=== PATIENT | female | born 1945 | race Caucasian/White ===

== ENCOUNTER 2018-08-17 11:31 | Outpatient (CLI) | payer MEDICARE | END 2018-08-17 11:32 | disposition home or self-care (01) | LOC: BICMAMMO 11:31 | PROVIDERS: ATTEND Obstetrics & Gynecology | DX: Z12.31 Encounter for screening mammogram for malignant neoplasm of breast (principal) | CPT/HCPCS: 77063; 77067 ==

== ENCOUNTER 2018-09-09 08:51 | Outpatient (CLI) | payer MEDICARE ==
--- NOTE | 2018-09-09 10:04 | BD ---
DEXA BONE MINERAL DENSITY STUDY: HISTORY: Osteoporosis screening, postmenopausal. COMPARISON: DEXA study from 2013. FINDINGS: Lumbar Spine: BMD (g/cm2) L1 0.778 T-Score: -1.9, 0.0 L2 0.705 T-Score: -2.9, 0.8 L3 0.795 T-Score: -2.6, 0.4 L4 0.829 T-Score: -2.1, 0.2 L1-L4 0.780 T-Score: -2.4,-0.3 WHO classification osteopenia. Femoral Neck: 0.640 T-Score: -1.9, 0.0 Total Femur: 0.895 T-Score: -0.4, 1.2 WHO classification osteopenia. TEN-YEAR FRACTURE RISK: Major osteoporotic fracture 11% and hip fracture 2.1%. Impression: Osteopenia with elevated fracture risk as above. POS: [facility]
== END 2018-09-09 08:52 | disposition home or self-care (01) ==
LOC: BICMAMMO 08:51
PROVIDERS: ATTEND Obstetrics & Gynecology
DX: Z13.820 Encounter for screening for osteoporosis (principal); M85.89 Other specified disorders of bone density and structure, multiple sites
CPT/HCPCS: 77080

== ENCOUNTER 2019-05-24 22:53 | Inpatient (IN) | payer MEDICARE ==
[2019-05-24] MEDS ORDERED: Morphine 4 MG/ML VIAL ONE (23:41)
[2019-05-25 04:34] LABS: #Basophils 0.1 thou/uL (0.0-0.2); #Lymphocytes 1.2 thou/uL (1.20-3.40); #Monocytes 0.7 thou/uL (0.11-0.59); #Neutrophils 8.2 thou/uL (1.40-6.50); %Basophils 0.6 % (0.0-1.0); %Eosinophils 0.2 % (0.0-10.0); %Lymphocytes 11.5 % (21.0-51.0); %Monocytes 6.7 % (0.0-10.0); %Neutrophils 81.1 % (42.0-75.0); Hemoglobin 11.3 g/dL (12.0-16.0); Mean Corpuscular HGB CONC 32.3 g/dL (32.0-36.0); Mean Corpuscular Hemoglobin 30.9 pg (27.0-31.0); Mean Corpuscular Volume 95.8 fL (78.0-98.0); Mean Platelet Volume 6.8 fL (7.4-10.4); Platelet Count 193 thou/uL (130-400); RBC Distribution Width 11.3 % (11.5-14.5); Red Blood Cell (RBC) Count 3.64 mill/uL (4.20-5.40); White Blood Cell (WBC) Count 10.2 thou/uL (4.8-10.8)
[2019-05-25 04:38] LABS: PTT 24.2 SEC (22.9-36.1); Prothrombin Time 13.6 SEC (12.0-14.7)
[2019-05-25 04:53] LABS: ALT (SGPT) 29 U/L (8-55); AST (SGOT) 50 U/L (5-34); Albumin 4.3 g/dL (3.4-4.8); Alkaline Phosphatase 41 U/L (40-150); Anion Gap 13 mmol/L (10-20); BUN (Urea Nitrogen) 26 mg/dL (9.8-20.1); Bilirubin, Total 0.6 mg/dL (0.2-1.2); CK (CPK) 147 U/L (29-168); Calc. Creatinine Clearance 0 mL/min (70-130); Calcium 8.9 mg/dL (7.8-10.44); Carbon Dioxide 24 mmol/L (23-31); Chloride 105 mmol/L (98-107); Estimated GFR-MDRD 67; Globulin 2.3 g/dL (2.4-3.5); Glucose 128 mg/dL (83-110); Potassium 4.1 mmol/L (3.5-5.1); Protein, Total 6.6 g/dL (6.0-8.3); Sodium 138 mmol/L (136-145)
[2019-05-25] MEDS ORDERED: Morphine 4 MG/ML VIAL SLOW IVP PRN (05:07)
[2019-05-25] MEDS ORDERED: Ondansetron PF 4 MG/2 ML Vial IVP PRN (05:07)
[2019-05-25] MEDS ORDERED: Dextrose 50% Abboject 50 ML SYRINGE SLOW IVP PRN (05:07)
[2019-05-25] MEDS ORDERED: hydrALAZINE 20 MG/ML VIAL SLOW IVP PRN (05:07)
[2019-05-25] MEDS ORDERED: Dextrose 5% in Water 1,000 ML IV PRN (05:07)
[2019-05-25] MEDS ORDERED: Promethazine HCl 25 MG/ML VIAL IM PRN ×2 (05:07→18:02)
[2019-05-25] MEDS ORDERED: Cyclobenzaprine 10 MG TAB PO PRN (05:10)
[2019-05-25] MEDS ORDERED: traMADol HCl 50 MG TAB PO PRN (05:10)
--- NOTE | 2019-05-25 05:49 | HP ---
TRAUMA SURGEON: Mikel Hong MD CONSULTING PHYSICIAN: Alin Rooney MD HISTORY OF PRESENT ILLNESS: The patient is a 73-year-old female, who presented to the Emergency Department via EMS after a mechanical fall 4 feet off a ladder. The patient reports that she was trying to install a cabinet door when she lost her footing on the stepladder and subsequently fell to the ground. She denies striking her head or loss of consciousness or anticoagulation use. She was able to crawl to the house phone and call for help. Upon my evaluation, she complained of right-sided groin and pelvic tenderness. She denied loss of bladder and bowel function or saddle paresthesias. REVIEW OF SYSTEMS: All additional 10-point review of systems negative except as indicated above. PAST MEDICAL HISTORY: Diverticulosis, osteoporosis, hyperlipidemia and diverticulitis. PAST SURGICAL HISTORY: Cholecystectomy and right lumpectomy. SOCIAL HISTORY: The patient drinks 1 glass of wine most days a week. No tobacco or drug use. MEDICATIONS: 1. Klonopin. 2. Lexapro. ALLERGIES: 1. BIAXIN, CODEINE, LEVOFLOXACIN, MOXIFLOXACIN, PENICILLIN, SULFA DRUGS. PHYSICAL EXAMINATION: VITAL SIGNS: Temperature 98.1, pulse 69, respirations 17, oxygen saturation 98% on room air, blood pressure 106/64. PRIMARY SURVEY: Airway intact. Adequate breath sounds bilaterally. 2+ pulses in the bilateral radials, femorals, and DPs. GCS 15. Gross motor and sensation are intact. No lacerations, bruising, or external bleeding. SECONDARY SURVEY: HEAD: Normocephalic and atraumatic. No gross palpable skull deformities. EYES: Pupils 3 to 2, equal, round, reactive to light bilaterally. ENT: No hemotympanum. No epistaxis. No septal hematoma. Midface stable to manipulation. No blood in the oropharynx. Dentition is intact. No anterior neck crepitus/tenderness/injury. C-SPINE: No step-offs or deformities, nontender. C-collar not in place. CHEST: Nontender. No crepitus. No abrasions or ecchymosis. Equal chest movement. ABDOMEN: Soft, nontender, nondistended. PELVIS: Stable to palpation. Right-sided tenderness. No abrasions or ecchymosis. RECTAL: Deferred. GENITOURINARY: Deferred. EXTREMITIES: No gross deformities. No abrasions or ecchymosis. 2+ pulses in bilateral radials, femorals, and DPs. BACK/SPINE: No step-offs or deformities or tenderness to palpation of the thoracic or lumbar spine. NEUROLOGIC: 5/5 strength in the bilateral lead recreation assistant, plantar flexion, and dorsiflexion. Gross normal sensation x4 extremities. LABORATORY FINDINGS: White count 10.2, hemoglobin 11.3, hematocrit 34.9, platelets 143. INR 1.0. Sodium 134, potassium 4.1, chloride 105, carbon dioxide 24, BUN 26, creatinine 0.84, glucose 128, CK 147, troponin less than 0.010. DIAGNOSTIC FINDINGS: CT of the abdomen and pelvis demonstrates multiple displaced comminuted fracture of the right superior, inferior and ischial pubic rami and right iliac bone fracture, right sacral wing fracture as well as a pelvic hematoma. Reads of the hip x-ray, shoulder x-ray and chest x-ray are still pending. ASSESSMENT: 1. Status post mechanical fall 4 feet with no loss of consciousness. 2. Multiple displaced comminuted fractures of the right superior, inferior and ischial pubic rami. 3. Right iliac bone fracture. 4. Right sacral wing fracture. 5. Pelvic hematoma. 6. History of diverticulosis, diverticulitis, osteoporosis and hyperlipidemia. PLAN: The patient will be admitted to the Trauma Service to the surgical floor. Dr. Rooney of Orthopedic Surgery has been consulted, who is planning operative intervention today. We will complete a chest x-ray as well as place a Davis catheter and complete a UA in the Emergency Department before going to the operating room. The patient is to receive physical and occupational postoperatively. She received p.o. and IV pain medications. It is likely she will need placement in acute rehab facility when she is ready for discharge. The patient was discussed with Dr. Hong before this dictation. Job ID: [id number]
[2019-05-25 05:59] LABS: Bilirubin Negative (Negative); Blood, Urine Negative (Negative); Glucose, Urine (Dipstick) Negative (Negative); Leukocyte Negative (Negative); Nitrite Negative (Negative); Protein, Urine (Dipstick) 30 mg/dL (Neg-Trace); Urobilinogen 0.2 mg/dL (Less than 2)
[2019-05-25 06:00] LABS: Clarity Clear (Clear)
[2019-05-25 06:06] LABS: Bacteria/HPF 1+ HPF (None Seen); RBC/HPF 0-3 HPF (0-3); Squamous Epithelial 0-3 HPF (0-3); WBC/HPF 0-3 HPF (0-3)
[2019-05-25] MEDS ORDERED: Ibuprofen 800 MG TAB ONE (06:18)
[2019-05-25] MEDS ORDERED: traMADol HCl 50 MG TAB ONE (06:18)
[2019-05-25] MEDS: Sodium Chloride 0.9% 1,000 ML IV SCH ×3 (06:34→21:34)
[2019-05-25] MEDS: Ibuprofen 800 MG TAB PO SCH ×2 (06:34→20:16)
[2019-05-25] MEDS: traMADol HCl 50 MG TAB PO SCH ×3 (06:35→23:56)
[2019-05-25] MEDS: Acetaminophen 1,000 MG in Premix Bag 1 BAG IVPB SCH ×3 (06:36→23:57)
--- NOTE | 2019-05-25 07:17 | RAD ---
CHEST 1 VIEW: Date: 05/25/19 HISTORY: Preop evaluation. COMPARISON: Prior exam dated 07/12/15. FINDINGS: COPD and mild cardiomegaly are stable. Lungs are clear. No pleural effusion or pneumothorax evident. No acute osseous abnormality is evident. IMPRESSION: No acute cardiopulmonary abnormality. POS: [facility]
--- NOTE | 2019-05-25 07:24 | CT ---
PRELIMINARY REPORT/[facility]/EMERGENCY AFTER HOURS PROCEDURE: EXAM: CT Pelvis Without Contrast, Skeletal EXAM DATE/TIME: 05/25/2019 1:08 AM CLINICAL HISTORY: 73 years old, female; Injury or trauma; Initial encounter; Fracture of pelvis & hip; Bilateral; Traum atic fracture; Pubis (pubic symphysis or rami); Not specified; Patient HX: F73 presents to ED via EMS after fall off 5 ft ladder approximately 1.5 hrs ago. PT landed on her rigth side, reports pain to R hip and R shoulder. PT denies head or neck injury. PT denies abd pain. Location TECHNIQUE: Imaging protocol: Axial computed tomography images of the pelvis without intravenous contrast. Exam f ocused on the skeletal structures. Coronal and sagittal reformatted images were created and reviewed. COMPARISON: No relevant prior studies available. FINDINGS: Bones/joints: Multiple displaced comminuted fractures of the right superior, inferior and ischiopubic rami and right iliac bone. Small nondisplaced fracture of the right sacral wing anterior corner. Other findings: Mild intrapelvic hematoma. Right ovarian 2.5 cm probable cystic lesion. IMPRESSION: Multiple pelvic fractures described above. Mild intrapelvic hematoma. Right ovarian probable cystic lesion; recommend nonemergent evaluation with pelvic ultrasound. Thank you for allowing us to participate in the care of your patient. Dictated and Authenticated by: Pedrito Moreno MD 05/25/2019 3:25 AM Central Time ([place] & [place]) FINAL REPORT EMERGENCY AFTER HOURS CT PELVIS: IMPRESSION: I agree with the preliminary report provided by [facility]. There is a comminuted fracture involving the ri ght iliac wing extending into the right ilium that does not involve the right SI joint. No discrete s acral fracture is evident. There is a comminuted right obturator ring fracture that does extend into the superior aspect of the right pubic body. The acetabuli appear intact. The proximal femurs are int act. Visualized lower lumbar spine appears within normal limits. There is diffuse osteopenia. There i s a 2.4 cm cyst within the right ovary likely related to serous occlusion cyst. There are scattered d iverticula. There are scattered vascular calcifications. IMPRESSION: Comminuted right-sided pelvic fractures. POS: [facility]
--- NOTE | 2019-05-25 07:44 | RAD ---
RIGHT SHOULDER THREE VIEWS: INDICATIONS: History of fall with right shoulder pain. COMPARISON: None. FINDINGS: There is a Hill-Sachs deformity involving the posterior-superior aspect of the humeral head. There i s bone irregularity seen along the anterior-inferior aspect of the glenoid, which may reflect sequela of an osseous Bankhart lesion. Recommend correlation for any prior history of shoulder dislocation. The AC joint appears within normal limits. The visualized right lung is clear. IMPRESSION: Comminuted, impacted Hill-Sachs deformity of the posterior-superior humeral head. Glenohumeral align ment is within normal limits. Irregularity involving the anterior-inferior aspect of the glenoid rim is suspicious for an osseous Bankhart injury. Follow-up MRI of the right shoulder is recommended fo r additional evaluation. POS: [facility]
[2019-05-25] MEDS ORDERED: CEFAZOLIN 2 GM in Premix Bag 1 BAG IVPB SCH ×2 (07:45→22:00)
--- NOTE | 2019-05-25 07:45 | RAD ---
RIGHT HIP TWO VIEWS: INDICATIONS: History of fall with right hip pain. COMPARISON: None. FINDINGS: There is enthesopathic change off the right ischial tuberosity. There is mild right SI joint osteoar throsis. No acute fracture or subluxation is evident. IMPRESSION: No acute osseous abnormality. POS: [facility]
--- NOTE | 2019-05-25 08:10 | RAD ---
XR Shoulder Rt 2 View: 05/25/2019 7:42 AM CLINICAL INDICATION: Right shoulder pain. COMPARISON: Prior exam performed earlier on May 25, 2019 at 12:01 AM FINDINGS: Bones: There are stable Hill-Sachs deformity of the humeral head and osseous Bankart lesion of the an terior inferior glenoid articular surface. Glenohumeral joint: Glenohumeral joint alignment is within normal limits. AC joint: Normal alignment. Visualized lung: Clear. Soft tissues: Within normal limits. IMPRESSION: Stable Hill-Sachs deformity of the humeral head and osseous Bankart lesion of the glenoid articular
--- NOTE | 2019-05-25 08:17 | CT ---
CT of the right shoulder without IV contrast INDICATION: History of fall with right shoulder pain COMPARISON: Radiographs of the right shoulder dated May 25, 2019 FINDINGS: As seen on comparison examination is a comminuted impacted Hill-Sachs deformity of the post erior superior humeral head. There is a comminuted moderately displaced anterior inferior osseous Bankart lesion. There are scattered ossific fragments seen within the anterior inferior aspect of the glenohumeral joint as well as within the axillary pouch. The osseous Bankart does involve slightly less than 25% of the anterior inferior glenoid articular surface. No additional acute osseous abnorma lity is evident. Visualized right lung is clear. IMPRESSION: 1. Comminuted impacted Hill-Sachs deformity of the posterior superior humeral head. 2. Comminuted moderately displaced osseous Bankart injury of the glenoid.
[2019-05-25] MEDS ORDERED: Gabapentin 100 MG CAP PO SCH (09:00)
[2019-05-25] MEDS: Famotidine 20 MG TAB PO SCH ×2 (11:41→21:41)
[2019-05-25] MEDS: Polyethylene Glycol 3350 17 GM Packet PO SCH (11:41)
[2019-05-25] MEDS: Senokot S 8.6-50 MG TAB PO SCH ×2 (11:42→21:41)
--- NOTE | 2019-05-25 14:03 | PRG ---
DATE OF SERVICE: 05/25/2019 SUBJECTIVE: Ms. Villa is a 73-year-old woman, who apparently fell of a ladder landing approximately 4 feet to the ground on her right side. The patient sustained multiple right-sided pelvic fractures. She is awake and alert this morning. Sanam Coma Scale is 15. The patient reports significant pain with even slight movement. She denies any chest or abdominal pain. She denies any dyspnea or syncope. OBJECTIVE: VITAL SIGNS: Include blood pressure 114/58, pulse is 73, respiratory rate is 18, temperature 98.1 degrees Fahrenheit, and oxygen saturation is 98% on room air. HEENT: Pupils are equal, round, and reactive to light and accommodation. HEART: Reveals regular rate and rhythm. No murmurs or gallops auscultated. LUNGS: Clear to auscultation bilaterally. Her breathing is regular and nonlabored. ABDOMEN: Soft, nontender, and nondistended. EXTREMITIES: Reveals 2+ radial and pedal pulses bilaterally. No ankle edema is present. NEUROLOGIC: Reveals no focal deficits present. LABORATORY FINDINGS: Laboratory findings today has been reviewed including a CBC with 10,200 white blood cells, hemoglobin and hematocrit of 11.3 and 34.9 respectively. Platelet count 193,000. Metabolic profile; sodium is 138, potassium is 4.1, chloride is 105, bicarb is 24, BUN is 26, creatinine is 0.84, and glucose is 128. IMPRESSION: 1. Post injury day #1 status post fall from a ladder. 2. Multiple right pelvic fractures. The patient is hemodynamically stable to proceed to the operating room for operative interventions of the Orthopedic Surgical Service. We will optimize pain control. Above findings and plan were discussed with the patient, who indicates understanding of the information given. I answered all of her questions. Job ID: [id number]
[2019-05-25] MEDS ORDERED: Rocuronium Bromide 10 MG/ML (10ML VIAL) ONE (15:52)
[2019-05-25] MEDS ORDERED: ePHEDrine 50 MG/ML VIAL ONE (15:52)
[2019-05-25] MEDS ORDERED: Dexamethasone 20 MG/5 ML VIAL ONE (15:52)
[2019-05-25] MEDS ORDERED: PROPOFOL 200 MG/20 ML VIAL ONE (15:52)
[2019-05-25] MEDS ORDERED: Ondansetron PF 4 MG/2 ML Vial ONE (15:52)
[2019-05-25] MEDS ORDERED: Glycopyrrolate 0.2 MG/ML 5 ML SYRINGE ONE (15:52)
[2019-05-25] MEDS ORDERED: Lidocaine 1% PF 5 ML VIAL ONE (15:52)
[2019-05-25] MEDS ORDERED: Promethazine HCl 25 MG/ML VIAL SLOW IVP PRN (18:02)
[2019-05-25] MEDS ORDERED: Ondansetron HCl/PF 4 MG/2 ML Vial IVP PRN (18:02)
[2019-05-25] MEDS: Ketorolac Tromethamine 30 MG/ML VIAL IVP SCH ×2 (20:16→23:58)
--- NOTE | 2019-05-25 20:43 | RAD ---
SACROILIAC JOINT THREE VIEWS: 05/25/19 HISTORY: SI joint fusion. FINDINGS/IMPRESSION: Four spot fluoroscopic intraoperative images of the SI joints demonstrate fusion of the right SI join t and placement of two screws. POS: [facility]
--- NOTE | 2019-05-25 23:41 | OP ---
DATE OF PROCEDURE: 05/25/2019 PREOPERATIVE DIAGNOSIS: Right sacroiliac disruption with posterior iliac fracture and superior and inferior rami fractures. POSTOPERATIVE DIAGNOSIS: Right sacroiliac disruption with posterior iliac fracture and superior and inferior rami fractures. PROCEDURE PERFORMED: Percutaneous screw stabilization of right sacroiliac joint. ANESTHESIA: General. TUBE DEPATCHER: Maureen Larios PA-C ESTIMATED BLOOD LOSS: 20 mL. IMPLANTS: Synthes 7.3 mm partially-threaded screw x1 and Synthes 7.3 mm fully-threaded screw x1. COMPLICATIONS: None. DRAINS: None. SPECIMEN: None. OUTCOME: Stabilization of right SI joint. INDICATIONS FOR PROCEDURE: The patient is a pleasant 73-year-old lady status post fall from step stool, sustaining pelvic ring fracture including right superior and inferior rami fractures, a right posterior iliac fracture and a disruption of the right SI joint. After discussion with the patient including risks and benefits, we decided to proceed with stabilization of this right SI joint. Informed consent has been obtained, I believe all questions answered. DESCRIPTION OF PROCEDURE: The patient was brought to the operating room and a time-out performed followed by induction of general anesthesia. Next, the patient was positioned supine on the radiolucent table and then the preliminary C-arm images were obtained to confirm that the SI joint could be well visualized for screw placement. Next, a sterile prep and drape was performed of the anterior pelvis extending all the way back to allow for percutaneous stabilization of the SI joints. After the sterile prep and drape, C-arm was brought in on a lateral projection with the greater sciatic notches superimposed on one another and then outlines of the superior border of the S1 segment as well as posterior and anterior borders of S1 were outlined on the skin. Next, 2 small stab wounds were made within the parameters of these skin markings and then a threaded guidewire was passed through the stab wound up against the lateral aspect of the ilium bordering the sacroiliac joint. These pins were then adjusted while the C-arm was still in the lateral projection until such that the one pin was placed superiorly anteriorly. It was tapped through the initial cortex and held in place. A second pin was then placed slightly posteriorly and inferiorly to the first again in identical fashion. Once provisional placement of the pins was achieved, the C-arm was brought into an AP pelvis and then brought into an inlet and outlet view to confirm that the pins were appropriately positioned. Once confirmed, they were then drilled across the SI joint into the sacrum with a smooth transition of these pins with no apparent violation of the foramina or anterior wall of the sacrum. Again, final confirmation was then performed with both inlet and outlet views. Measurement was taken off these pins and then appropriate length screws were passed over these guide pins along with washers. The screws had excellent purchase in the bone with good compression across the SI joint. The guidewires were then removed and final inlet, outlet, and lateral projections were obtained that showed appropriately positioned hardware. The 2 small stab wounds were then irrigated with normal saline and then closed with a single layer of elaine. Xeroform gauze and tape dressing were applied to the lateral thigh and then the patient was transferred to recovery room in stable condition. There were no complications. She tolerated the procedure well. Job ID: [id number]
--- NOTE | 2019-05-25 23:56 | CON ---
DATE OF CONSULTATION: 05/25/2019 REQUESTING PHYSICIAN: Mikel Hong MD BRIEF HISTORY OF PRESENT ILLNESS: The patient is a pleasant 73-year-old lady who was examined in the emergency department at [facility] following a fall of approximately 4 feet from a ladder. She reports that she was in the process of remodeling her kitchen when she lost her balance and footing on a stepladder and fell landing on her right side. She reports some pain at the shoulder and more significant pain in the groin and right posterior pelvis region. Workup included plain x-rays of the pelvis which shows a right posterior iliac fracture that extends posterior to the SI joint as well as disruption of the SI joint and superior and inferior rami fractures on the right side. CT scan confirms the above. The patient also has a shoulder with plain x-ray showing possible small avulsion type injury at the greater tuberosity. Given these orthopedic findings, orthopedic consultation requested. PAST MEDICAL HISTORY: Remarkable for hyperlipidemia, diverticulosis, as well as osteoporosis. PAST SURGICAL HISTORY: Includes cholecystectomy as well as right lumpectomy. MEDICATIONS: Klonopin and Lexapro. ALLERGIES: MULTIPLE TO CODEINE, LEVOFLOXACIN, PENICILLIN, SULFA DRUGS, BIAXIN. SOCIAL HISTORY: She is a nonsmoker. Drinks a glass of wine with most of the evening meals. Denies tobacco use. FAMILY HISTORY: Noncontributory. REVIEW OF SYSTEMS: Denies recent fevers, chills, or sweats. Denies chest pain or shortness of breath. Denies numbness or tingling in the lower extremities. PHYSICAL EXAMINATION: VITAL SIGNS: She is found to have a temperature of 98.1, heart rate of 69, respiratory rate of 17, blood pressure 106/64. HEENT: Atraumatic and normocephalic. HEART: Shows a regular rate and rhythm without murmur. LUNGS: Clear to auscultation bilaterally with good breath sounds. Chest wall is nontender. ABDOMEN: Round, soft, and nontender. PELVIS: Remarkable for pain with any type of compression along the iliac wings with pain felt both in the right groin as well as right posterior SI region. EXTREMITIES: Remarkable for bilateral upper extremities with intact distal neurovascular exam. The left upper extremity is atraumatic at shoulder, elbow, wrist, and hand. The right upper extremity remarkable for pain to palpation along the greater tuberosity. The patient has inability to actively forward elevate the shoulder because of this pain. The elbow, wrist, and hand appear atraumatic. She has intact sensation. Bilateral lower extremities show no pain at the hip, knee, ankle, or foot. She is wiggling her toes normally. Has intact subjective sensation. She does have pain deep in the groin in the area of the pubic rami, as well as again pain at the posterior SI joint on the right side. X-RAYS: As per history of present illness. LABORATORY DATA: She has a white count of 10, hematocrit of 34.9 and 143,000 of platelets. Her INR is 1.0. ASSESSMENT: A 73-year-old lady status post forefoot fall, sustaining a pelvic ring fracture including right superior and inferior rami fractures as well as a right iliac fracture and disruption of the right sacroiliac joint. PLAN: Today, I have discussed with the patient that her fractures are minimally displaced and I would expect the rami fractures to heal uneventfully. The iliac wing fracture is actually a very posterior fracture without significant displacement. She does have some widening of the sacroiliac joint and this is the most concerning area to my exam of this pelvis. Today, we have discussed the potential benefits of percutaneous sacroiliac screws to stabilize the SI joint to allow for the ligaments to heal. We have discussed risks and benefits of this procedure. Risks include, but are not limited to bleeding, infection, nerve injury, DVT, PE, posttraumatic arthritis of the SI joint, continued pain, hardware failure, loss of limb or life. The patient does appear to understand and does wish to proceed with surgery. We will tentatively plan on proceeding with surgery on the day of admission, pending trauma surgery clearance. Job ID: [id number]
[2019-05-25] MEDS: CEFAZOLIN 2 GM in Premix Bag 1 BAG IVPB SCH (23:58)
[2019-05-26 02:12] VITALS: BMI 26.1
[2019-05-26 04:52] LABS: #Lymphocytes 0.8 thou/uL (1.20-3.40); #Monocytes 0.2 thou/uL (0.11-0.59); #Neutrophils 5.4 thou/uL (1.40-6.50); %Basophils 0.1 % (0.0-1.0); %Eosinophils 0.3 % (0.0-10.0); %Lymphocytes 12.1 % (21.0-51.0); %Monocytes 3.2 % (0.0-10.0); %Neutrophils 84.4 % (42.0-75.0); Hemoglobin 10.2 g/dL (12.0-16.0); Mean Corpuscular HGB CONC 31.9 g/dL (32.0-36.0); Mean Corpuscular Hemoglobin 31.2 pg (27.0-31.0); Mean Corpuscular Volume 97.7 fL (78.0-98.0); Mean Platelet Volume 6.9 fL (7.4-10.4); Platelet Count 158 thou/uL (130-400); RBC Distribution Width 11.3 % (11.5-14.5); Red Blood Cell (RBC) Count 3.29 mill/uL (4.20-5.40); White Blood Cell (WBC) Count 6.4 thou/uL (4.8-10.8)
[2019-05-26 05:20] LABS: Anion Gap 9 mmol/L (10-20); BUN (Urea Nitrogen) 15 mg/dL (9.8-20.1); Calc. Creatinine Clearance 75 mL/min (70-130); Carbon Dioxide 23 mmol/L (23-31); Chloride 108 mmol/L (98-107); Estimated GFR-MDRD 82; Glucose 152 mg/dL (83-110); Magnesium 2.1 mg/dL (1.6-2.6); Phosphorus 3.3 mg/dL (2.3-4.7); Potassium 4.5 mmol/L (3.5-5.1); Sodium 135 mmol/L (136-145)
[2019-05-26] MEDS: traMADol HCl 50 MG TAB PO SCH ×4 (05:51→23:22)
[2019-05-26] MEDS: Ketorolac Tromethamine 30 MG/ML VIAL IVP SCH (05:52)
[2019-05-26] MEDS: CEFAZOLIN 2 GM in Premix Bag 1 BAG IVPB SCH ×2 (08:45→14:31)
[2019-05-26] MEDS: Polyethylene Glycol 3350 17 GM Packet PO SCH (08:46)
[2019-05-26] MEDS: Senokot S 8.6-50 MG TAB PO SCH ×2 (08:46→21:16)
[2019-05-26] MEDS: Famotidine 20 MG TAB PO SCH ×2 (08:46→21:16)
[2019-05-26] MEDS: Sodium Chloride 0.9% 1,000 ML IV SCH (08:47)
--- NOTE | 2019-05-26 12:39 | CT ---
CT PELVIS WITHOUT CONTRAST: 05/26/19 Axial tomograms obtained with multiplanar reconstruction. INDICATION: Status post open reduction internal fixation right pelvis. COMPARISON: 05/25/19. FINDINGS/IMPRESSION: A metallic screw now transfixes the right sacroiliac joint and sacrum with screw crossing the midline at the sacrum. Both inferior and superior rami fractures on the right again noted. The cystic lesion in the right pelvis again noted and is unchanged. POS: [facility]
--- NOTE | 2019-05-26 13:07 | PRG ---
DATE OF SERVICE: 05/26/2019 This is Colin Daniels PA-C dictating a report for Isaiah Billingsley DO. SUBJECTIVE: The patient is hospital day 2, postop day 1, status post fall when she sustained multiple right-sided pelvic fractures. She also likely had dislocated her shoulder and spontaneously self reduced resulting in Bankart lesion and Hill-Sachs deformity. Yesterday, she underwent open reduction and internal fixation of her pelvic fractures. She had no issues overnight. This morning, she is tolerating a diet. Her pain is controlled and she is awaiting physical and occupational therapy. OBJECTIVE: VITAL SIGNS: Temperature is 97.5, heart rate is 74, blood pressure 111/54, respirations 16, and oxygen saturation 99% on room air. GENERAL: The patient is resting comfortably in bed. She is awake, alert, and oriented x3. Sanam Coma Scale is 15. HEENT: Unremarkable. LUNGS: Clear to auscultation with good inspiratory and expiratory effort. HEART: Regular rate and rhythm. ABDOMEN: Soft, flat, and nontender with active bowel sounds. EXTREMITIES: Neurovascularly intact x4. LABORATORY FINDINGS: White blood cell count of 6.4, hemoglobin 10.2, hematocrit 32.1, and platelets 158. Sodium 135, potassium 4.5, chloride 108, CO2 of 23, BUN 15, creatinine 0.70, glucose 152, magnesium 2.1, phosphorus 3.3. There are no radiographs reviewed this morning. ASSESSMENT: 1. Status post fall from approximately 4 feet off a ladder. 2. Multiple right pelvic fractures, status post percutaneous screw stabilization of right sacroiliac joint. 3. Right shoulder bony and soft tissue injury. PLAN: Plan will be to continue supportive care, physical and occupational therapy. Sling for right upper extremity and await placement decision. The patient was evaluated this morning with Dr. Billingsley. Job ID: [id number]
[2019-05-26] MEDS ORDERED: Ibuprofen 600 MG TAB PO PRN (20:30)
[2019-05-26] MEDS: clonazePAM 0.5 MG TAB PO SCH (21:16)
[2019-05-26] MEDS: Escitalopram Oxalate 20 mg Tablet PO SCH (21:16)
[2019-05-26] MEDS: Acetaminophen 500 MG TAB PO SCH (23:22)
[2019-05-27] MEDS: traMADol HCl 50 MG TAB PO SCH ×4 (05:18→23:04)
[2019-05-27] MEDS: Acetaminophen 500 MG TAB PO SCH ×4 (05:19→23:04)
[2019-05-27] MEDS: Senokot S 8.6-50 MG TAB PO SCH ×2 (09:08→20:10)
[2019-05-27] MEDS: Polyethylene Glycol 3350 17 GM Packet PO SCH (09:08)
[2019-05-27] MEDS: Enoxaparin Sodium 40 MG/0.4 ML SYRINGE SC SCH (09:10)
[2019-05-27] MEDS: clonazePAM 0.5 MG TAB PO SCH (20:09)
[2019-05-27] MEDS: Escitalopram Oxalate 20 mg Tablet PO SCH (20:09)
--- NOTE | 2019-05-27 20:46 | PRG ---
DATE OF SERVICE: 05/27/2019 SUBJECTIVE: The patient remains on the surgical floor. She is hospital day 3, postop day 2, status post a fall in which she sustained multiple right-sided pelvic fractures. She underwent percutaneous screw fixation and stabilization of her right SI joint. She also had during her fall likely dislocated her right shoulder which was reduced either during the fall or by herself, but she is undergoing treatment for that. The patient has a sling for her upper extremities. She is weightbearing on her right lower extremity per Orthopedics guidance, but she is currently nonweightbearing. She is tolerating a diet. Her pain is controlled and she is working with physical and occupational therapy. OBJECTIVE: VITAL SIGNS: Temperature is 98.0, heart rate 69, blood pressure 113/61, respirations 12, oxygen saturation 94% on room air. GENERAL: The patient is resting comfortably in bed. She is asleep, but was easily awakened with verbal stimuli. HEENT: Unremarkable. LUNGS: Clear to auscultation bilaterally. HEART: Regular rate and rhythm. ABDOMEN: Soft, flat, nontender with active bowel sounds. EXTREMITIES: Neurovascularly intact x4. There are no labs or radiographs to review this morning. ASSESSMENT: 1. Status post fall from ladder of approximately 4 feet. 2. Multiple pelvic fractures, status post percutaneous screws stabilization of right SI joint. 3. Right shoulder injury. PLAN: Plan will be to continue supportive care, physical and occupational therapy and await placement decision. This is expected within the next 24 to 48 hours. Job ID: [id number]
[2019-05-28 04:18] VITALS: TEMP 98.2
[2019-05-28] MEDS: traMADol HCl 50 MG TAB PO SCH (05:28)
[2019-05-28] MEDS: Acetaminophen 500 MG TAB PO SCH (05:29)
[2019-05-28 07:54] VITALS: BP 103/62
[2019-05-28] MEDS: Senokot S 8.6-50 MG TAB PO SCH (08:06)
[2019-05-28] MEDS: Enoxaparin Sodium 40 MG/0.4 ML SYRINGE SC SCH (08:49)
[2019-05-28] MEDS ORDERED: Gabapentin 100 MG CAP PO SCH (09:00)
--- NOTE | 2019-05-29 12:13 | EKG ---
Test Reason : Blood Pressure : / mmHG Vent. Rate : 067 BPM Atrial Rate : 067 BPM P-R Int : 170 ms QRS Dur : 080 ms QT Int : 426 ms P-R-T Axes : 053 007 042 degrees QTc Int : 450 ms Normal sinus rhythm Confirmed by TAY UMAÑA ([id number]), editor magazine NORMA SEPULVEDA ([id number]) on 05/29/2019 12:12:32 PM Referred By: Confirmed By:TAY UMAÑA
== END 2019-05-28 10:18 | DRG 516 ==
LOC: ERS 22:53 → ERHOLD 05-25 03:49 → SJJU 05-25 19:23
PROVIDERS: ADMIT Specialist; ATTEND Specialist
PROC: 0QH134Z Insertion of Internal Fixation Device into Sacrum, Percutaneous Approach (ICD-10-PCS; principal; 2019-05-25)
DX: S32.591A Other specified fracture of right pubis, initial encounter for closed fracture (principal); S32.10XA Unspecified fracture of sacrum, initial encounter for closed fracture; S32.301A Unspecified fracture of right ilium, initial encounter for closed fracture; W11.XXXA Fall on and from ladder, initial encounter; E78.5 Hyperlipidemia, unspecified; M81.0 Age-related osteoporosis without current pathological fracture; Z90.49 Acquired absence of other specified parts of digestive tract; Z88.1 Allergy status to other antibiotic agents; Z88.0 Allergy status to penicillin; Z88.2 Allergy status to sulfonamides; Z88.5 Allergy status to narcotic agent; Y92.000 Kitchen of unspecified non-institutional (private) residence as the place of occurrence of the external cause
CPT/HCPCS: 36415; 71045; 72192; 72202; 76000; 80048; 80053; 81003; 81015; 82550; 83735; 84100; 84484; 85025; 85610; 85730; 93005; 96374; C1713; C1769; J0131; J0690; J1100; J1650; J1885; J2001; J2270; J2405; J2704; J3490

== ENCOUNTER 2019-05-29 20:05 | Emergency (ER) | payer MEDICARE ==
--- NOTE | 2019-05-29 21:03 | RAD ---
XR Shoulder Rt 2 View: 05/29/2019 8:42 PM CLINICAL INDICATION: Injury, dislocation COMPARISON: 05/25/2019 FINDINGS: There is inferior and anteromedial location of the humeral head relative to the scapular glenoid. Sma ll fragmentation adjacent the displaced humeral head is demonstrated. IMPRESSION: Anterior dislocation of the right humerus, with adjacent osseous fragmentation. Recommend follow-up i maging upon restored alignment.
[2019-05-29] MEDS ORDERED: Fentanyl 100 MCG/2 ML VIAL ONE (21:19)
[2019-05-29] MEDS ORDERED: Ondansetron PF 4 MG/2 ML Vial ONE (21:29)
[2019-05-29] MEDS ORDERED: Morphine 4 MG/ML VIAL ONE (21:29)
[2019-05-29] MEDS ORDERED: PROPOFOL 20 ML ONE (21:57)
--- NOTE | 2019-05-29 23:01 | RAD ---
Right shoulder 2 view Indication: Post reduction evaluation. FINDINGS: Restored alignment of right shoulder. Prior small osseous density is not discretely visuali zed. 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 Impression: Restored alignment of the right shoulder. Prior small osseous density is not discretely visualized on this exam. Transcribed Date/Time: 05/29/2019 11:04 PM
== END 2019-05-30 00:18 ==
LOC: ERS 20:05
DX: S43.014A Anterior dislocation of right humerus, initial encounter (principal); E78.5 Hyperlipidemia, unspecified; M81.0 Age-related osteoporosis without current pathological fracture; Z79.01 Long term (current) use of anticoagulants; Z79.899 Other long term (current) drug therapy; X58.XXXA Exposure to other specified factors, initial encounter
CPT/HCPCS: 23650; 96361; 96374; 96375; 99156; J2270; J2405; J2704; J3010

== ENCOUNTER 2020-09-04 08:58 | Outpatient (CLI) | payer MEDICARE ==
--- NOTE | 2020-09-04 09:34 | MMO ---
Bilateral MAMMO Bilat Screen [facility]. CLINICAL HISTORY: Patient is 75 years old and is seen for screening. The patient has the following family history of breast cancer: 2 maternal aunts. The patient has no personal history of cancer. The patient has a history of right Excisional Biopsy in 1994 - benign. VIEWS: The views performed were: bilateral craniocaudal with tomosynthesis and bilateral mediolateral oblique with tomosynthesis. FILMS COMPARED: The present examination has been compared to prior imaging studies performed at [facility] on 09/05/2016, 08/14/2017 and 08/17/2018, and at [facility] on 06/16/2015. This study has been interpreted with the assistance of computer-aided detection. MAMMOGRAM FINDINGS: There are scattered fibroglandular densities. There are stable benign appearing calcifications seen in both breasts. There are also vascular calcifications. There are no suspicious masses, suspicious calcifications, or new areas of architectural distortion. IMPRESSION: THERE IS NO MAMMOGRAPHIC EVIDENCE OF MALIGNANCY. A ROUTINE FOLLOW-UP MAMMOGRAM IN 1 YEAR IS RECOMMENDED. THE RESULTS OF THIS EXAM WERE SENT TO THE PATIENT. ACR BI-RADS Category 2 - Benign finding MAMMOGRAPHY NOTE: 1. A negative mammogram report should not delay a biopsy if a dominant of clinically suspicious mass is present. 2. Approximately 10% to 15% of breast cancers are not detected by mammography. 3. Adenosis and dense breasts may obscure an underlying neoplasm. Reported by: YUNIEL GREENE MD Electonically Signed: [id number]
== END 2020-09-04 08:59 | disposition home or self-care (01) ==
LOC: BICMAMMO 08:58
PROVIDERS: ATTEND Physician Assistant
DX: Z12.31 Encounter for screening mammogram for malignant neoplasm of breast (principal); Z80.3 Family history of malignant neoplasm of breast
CPT/HCPCS: 77063; 77067

== ENCOUNTER 2021-05-18 12:50 | Observation (INO) | payer MEDICARE ==
[2021-05-18] MEDS ORDERED: Ondansetron PF 4 MG/2 ML Vial ONE (13:57)
[2021-05-18] MEDS ORDERED: Diazepam 5 MG TAB ONE (13:57)
[2021-05-18] MEDS ORDERED: Diazepam 10 MG/2 ML SYRINGE ONE (14:07)
[2021-05-18 14:48] LABS: #Basophils 0.1 thou/uL (0.0-0.2); #Eosinphils 0.1 thou/uL (0.0-0.7); #Monocytes 0.6 thou/uL (0.11-0.59); %Basophils 0.7 % (0.0-1.0); %Eosinophils 0.9 % (0.0-10.0); %Lymphocytes 23.5 % (21.0-51.0); %Monocytes 6.4 % (0.0-10.0); %Neutrophils 68.6 % (42.0-75.0); Hemoglobin 12.1 g/dL (12.0-16.0); Mean Corpuscular Hemoglobin 31.2 pg (27.0-31.0); Mean Corpuscular Volume 97.7 fL (78.0-98.0); Mean Platelet Volume 6.8 fL (7.4-10.4); Platelet Count 201 thou/uL (130-400); Red Blood Cell (RBC) Count 3.86 mill/uL (4.20-5.40); White Blood Cell (WBC) Count 8.7 thou/uL (4.8-10.8)
[2021-05-18 15:10] LABS: ALT (SGPT) 15 U/L (8-55); AST (SGOT) 23 U/L (5-34); Alkaline Phosphatase 42 U/L (40-110); Anion Gap 15 mmol/L (10-20); BUN (Urea Nitrogen) 14 mg/dL (9.8-20.1); Bilirubin, Total 0.6 mg/dL (0.2-1.2); CK (CPK) 127 U/L (29-168); Calc. Creatinine Clearance 0 mL/min (70-130); Calcium 8.6 mg/dL (7.8-10.44); Carbon Dioxide 19 mmol/L (23-31); Chloride 107 mmol/L (98-107); Globulin 2.3 g/dL (2.4-3.5); Glucose 114 mg/dL (83-110); Potassium 3.8 mmol/L (3.5-5.1); Protein, Total 6.3 g/dL (5.8-8.1); Sodium 137 mmol/L (136-145)
[2021-05-18] MEDS ORDERED: Meclizine HCl 25 MG TAB ONE (15:59)
[2021-05-18] MEDS ORDERED: Ondansetron PF 4 MG/2 ML Vial IVP PRN (18:03)
[2021-05-18] MEDS ORDERED: Ondansetron ODT 4 MG TAB PO PRN (18:03)
[2021-05-18] MEDS ORDERED: Acetaminophen 500 MG TAB PO PRN (18:03)
[2021-05-18] MEDS ORDERED: Scopolamine 1.5 mg/72 hour Patch TD SCH (18:15)
[2021-05-18] MEDS: diphenhydrAMINE 50 MG/ML VIAL IVP SCH ×2 (18:41→23:34)
[2021-05-18] MEDS: Sodium Chloride 0.9% 1,000 ML IV SCH (18:41)
[2021-05-18 18:54] VITALS: BMI 26.2
[2021-05-18] MEDS: Famotidine/PF 20 mg/2ml Vial SLOW IVP SCH (19:37)
[2021-05-18] MEDS ORDERED: Escitalopram Oxalate 20 mg Tablet PO SCH (21:00)
[2021-05-18] MEDS ORDERED: clonazePAM 0.5 MG TAB PO SCH (21:00)
[2021-05-19] MEDS: Sodium Chloride 0.9% 1,000 ML IV SCH ×2 (04:30→17:49)
[2021-05-19 05:22] LABS: #Basophils 0.1 thou/uL (0.0-0.2); #Lymphocytes 2.7 thou/uL (1.20-3.40); #Monocytes 0.4 thou/uL (0.11-0.59); #Neutrophils 2.5 thou/uL (1.40-6.50); %Basophils 1.3 % (0.0-1.0); %Eosinophils 0.7 % (0.0-10.0); %Lymphocytes 47.6 % (21.0-51.0); %Monocytes 7.7 % (0.0-10.0); %Neutrophils 42.6 % (42.0-75.0); Hemoglobin 11.8 g/dL (12.0-16.0); Mean Corpuscular HGB CONC 32.9 g/dL (32.0-36.0); Mean Corpuscular Hemoglobin 32.5 pg (27.0-31.0); Mean Corpuscular Volume 98.7 fL (78.0-98.0); Mean Platelet Volume 6.6 fL (7.4-10.4); Platelet Count 181 thou/uL (130-400); RBC Distribution Width 11.1 % (11.5-14.5); Red Blood Cell (RBC) Count 3.63 mill/uL (4.20-5.40); White Blood Cell (WBC) Count 5.8 thou/uL (4.8-10.8)
[2021-05-19] MEDS: diphenhydrAMINE 50 MG/ML VIAL IVP SCH ×3 (06:06→17:49)
[2021-05-19 06:24] LABS: Anion Gap 10 mmol/L (10-20); BUN (Urea Nitrogen) 8 mg/dL (9.8-20.1); Calc. Creatinine Clearance 69 mL/min (70-130); Calcium 8.3 mg/dL (7.8-10.44); Carbon Dioxide 23 mmol/L (23-31); Chloride 110 mmol/L (98-107); Glucose 93 mg/dL (83-110); Potassium 3.9 mmol/L (3.5-5.1); Sodium 139 mmol/L (136-145)
[2021-05-19] MEDS: Famotidine/PF 20 mg/2ml Vial SLOW IVP SCH (09:11)
[2021-05-19] MEDS ORDERED: Iopamidol-370 76% 500 ML 1 ML ONE (09:48)
[2021-05-19 15:36] VITALS: BP 133/60; TEMP 97.7
== END 2021-05-19 18:33 | disposition home or self-care (01) ==
LOC: ERS 12:50 → 2SE 17:29
PROVIDERS: ADMIT Family Medicine; ATTEND Internal Medicine
DX: R42 Dizziness and giddiness (principal); R11.2 Nausea with vomiting, unspecified; I10 Essential (primary) hypertension; E78.5 Hyperlipidemia, unspecified; G43.109 Migraine with aura, not intractable, without status migrainosus; Z88.0 Allergy status to penicillin; Z88.1 Allergy status to other antibiotic agents; Z88.2 Allergy status to sulfonamides; Z88.5 Allergy status to narcotic agent
CPT/HCPCS: 36415; 70450; 70498; 70551; 80048; 80053; 82550; 84484; 85025; 93005; 94760; 96374; 96375; 96376; G0378; J1200; J2405; J3360; Q9967; S0028

== ENCOUNTER 2022-05-13 12:34 | Emergency (ER) | payer MEDICARE ==
[2022-05-13 13:49] LABS: #Basophils 0.1 thou/uL (0.0-0.2); #Lymphocytes 2.7 thou/uL (1.20-3.40); #Monocytes 0.4 thou/uL (0.11-0.59); #Neutrophils 2.7 thou/uL (1.40-6.50); %Basophils 1.7 % (0.0-1.0); %Eosinophils 0.7 % (0.0-10.0); %Lymphocytes 45.2 % (21.0-51.0); %Monocytes 6.2 % (0.0-10.0); %Neutrophils 46.1 % (42.0-75.0); Hemoglobin 14.2 g/dL (12.0-16.0); Mean Corpuscular HGB CONC 32.2 g/dL (32.0-36.0); Mean Corpuscular Hemoglobin 31.9 pg (27.0-31.0); Mean Corpuscular Volume 98.9 fL (78.0-98.0); Mean Platelet Volume 6.5 fL (7.4-10.4); Platelet Count 234 thou/uL (130-400); Red Blood Cell (RBC) Count 4.45 mill/uL (4.20-5.40); White Blood Cell (WBC) Count 5.9 thou/uL (4.8-10.8)
[2022-05-13 14:20] LABS: ALT (SGPT) 18 U/L (8-55); AST (SGOT) 22 U/L (5-34); Acetaminophen Less than 10.0 mcg/mL (10.0-30.0); Albumin 4.7 g/dL (3.4-4.8); Alcohol Less than 10 mg/dL (Less than 10); Alkaline Phosphatase 42 U/L (40-110); Anion Gap 16 mmol/L (10-20); BUN (Urea Nitrogen) 13 mg/dL (9.8-20.1); Calc. Creatinine Clearance 0 mL/min (70-130); Calcium 10.2 mg/dL (7.8-10.44); Carbon Dioxide 24 mmol/L (23-31); Chloride 103 mmol/L (98-107); Glucose 90 mg/dL (83-110); Potassium 3.9 mmol/L (3.5-5.1); Protein, Total 7.7 g/dL (5.8-8.1); Salicylate Less than 8.0 mg/dL (15.0-30.0); Sodium 139 mmol/L (136-145)
[2022-05-13 16:39] LABS: Bacteria/HPF None Seen HPF (None Seen); Bilirubin Negative (Negative); Blood, Urine Negative (Negative); Clarity Clear (Clear); Glucose, Urine (Dipstick) Normal (Negative); Ketone, Urine 40 mg/dL (Negative); Leukocyte 75 Leu/uL (Negative); Nitrite Negative (Negative); Protein, Urine (Dipstick) Negative (Neg-Trace); RBC/HPF 0-3 HPF (0-3); Specific Gravity, Urine 1.023 (1.002-1.036); Squamous Epithelial None Seen HPF (0-3); Urobilinogen Normal mg/dL (Less than 2); pH, Urine 5.5 (5.0-9.0)
[2022-05-13 17:17] LABS: Amphetamine Not Detected (NotDetected); Barbiturates Screen Not Detected (NotDetected); Benzodiazepine Screen Not Detected (NotDetected); Cocaine Metabolite Screen Not Detected (NotDetected); Methadone Not Detected (NotDetected); Methamphetamine Not Detected (NotDetected); Opiate Screen Not Detected (NotDetected); Oxycodone Screen Not Detected (NotDetected); Phencyclidine (PCP) Not Detected (NotDetected); THC/Cannabinoid Screen Not Detected (NotDetected); Tricyclic Screen Not Detected (NotDetected)
[2022-05-13] MEDS ORDERED: Lorazepam 2 MG/ML VIAL ONE (18:46)
== END 2022-05-13 19:00 | disposition home or self-care (01) ==
LOC: ERS 12:34
DX: F41.9 Anxiety disorder, unspecified (principal); E78.5 Hyperlipidemia, unspecified
CPT/HCPCS: 36415; 80053; 80306; 80307; 81003; 81015; 84443; 85025; 87086; 93005; 96372; J2060

== ENCOUNTER 2024-01-07 14:01 | Outpatient (CLI) | payer MEDICARE | END 2024-01-07 14:02 | disposition home or self-care (01) | LOC: BICRAD 14:01 | PROVIDERS: ATTEND Neurological Surgery | DX: M54.50 Low back pain, unspecified (principal) | CPT/HCPCS: 72100 ==

== ENCOUNTER 2024-05-03 15:05 | Outpatient (CLI) | payer MEDICARE | END 2024-05-03 15:06 | disposition home or self-care (01) | LOC: BICMAMMO 15:05 | PROVIDERS: ATTEND Nurse Practitioner Family | DX: Z13.820 Encounter for screening for osteoporosis (principal); M81.0 Age-related osteoporosis without current pathological fracture; M85.852 Other specified disorders of bone density and structure, left thigh; Z78.0 Asymptomatic menopausal state | CPT/HCPCS: 77080 ==